=== PATIENT | male | born 1990 | race Caucasian/White ===

== ENCOUNTER 2020-03-24 12:54 | Outpatient (REF) | payer MEDICAID, SELFPAY | END 2020-03-24 12:55 | disposition home or self-care (01) | LOC: HO.LAB 12:54 | PROVIDERS: Visit Provider Internal Medicine | DX: Z20.828 Contact with and (suspected) exposure to other viral communicable diseases (principal) | CPT/HCPCS: C9803; U0003 ==

== ENCOUNTER 2021-04-21 09:10 | Outpatient (REF) | payer MEDICAID, SELFPAY ==
--- NOTE | ~2021-04-21 | XR_ITS ---
EXAMINATION: XR KNEE, RIGHT CLINICAL INFORMATION: Right knee pain with bending radiating proximally within hamstrings. COMPARISON: None TECHNIQUE: Four views of the right knee. FINDINGS: Bones and soft tissues are normal. No fracture or joint effusion. Alignment is anatomic. Joint spaces are well maintained. No abnormal soft tissue calcification. XR/XR knee RT 4V IMPRESSION: Unremarkable examination.
== END 2021-04-21 09:11 | disposition home or self-care (01) ==
LOC: HO.XRAY 09:10
PROVIDERS: PCP Nurse Practitioner; Visit Provider Nurse Practitioner
DX: M25.561 Pain in right knee (principal)
CPT/HCPCS: 73564

== ENCOUNTER 2022-11-29 08:50 | Outpatient (REF) | payer MEDICAID, SELFPAY ==
[2022-11-29 11:39] LABS: MANUAL DIFF FLAG NO
[2022-11-29 11:55] LABS: Basophils Percent Auto 0.6 % (0-2); Eosinophils Absolute Auto 0.1 X10*3/uL (0.0-0.4); Eosinophils Percent Auto 1.9 % (0-4); Hematocrit 48.8 % (42.0-52.0); Hemoglobin 15.6 g/dl (14.0-18.0); Imm Gran Abs Auto 0.02 X10*3/uL (0.00-0.03); Imm Gran Pct Auto 0.3 % (0.0-0.4); Lymphocytes Absolute Auto 1.9 X10*3/uL (1.2-4.9); Lymphocytes Percent Auto 29.4 % (20-40); Mean Corpuscular Hemoglobin 28.1 pg (27.0-33.0); Mean Corpuscular Volume 87.8 fL (80.0-98.0); Mean Platelet Volume 11.4 fL (9.4-12.4); Monocytes Absolute Auto 0.6 X10*3/uL (0.1-1.2); Neutrophils Absolute Auto 3.6 x10*3/uL (2.0-8.3); Neutrophils Percent Auto 57.8 % (45-73); Platelet Count 270 X10*3/uL (160-400); Red Blood Count 5.56 X10*6/uL (4.60-5.80); Red Cell Distribution Width 13.4 % (11.0-16.0); White Blood Count 6.3 X10*3/uL (4.8-10.8)
[2022-11-29 12:18] LABS: Alanine Aminotransferase 29 U/L (0-40); Albumin Level 4.3 g/dL (3.5-5.0); Alkaline Phosphatase 67 U/L (39-117); Anion Gap 18 (12-20); Aspartate Amino Transferase 23 U/L (5-37); Bilirubin Total 1.3 mg/dL (0.0-1.0); Blood Urea Nitrogen 12 mg/dL (9-16); Calcium 9.4 mg/dL (8.4-10.2); Carbon Dioxide 25 mmol/L (22-29); Chloride 106 mmol/L (96-108); Cholesterol 133 mg/dL; Estimated Glomerular Filt Rate > 60; Glucose Random 93 mg/dL (60-115); HDL Cholesterol 39 mg/dL; LDL Cholesterol Calculated 74 mg/dl; Potassium 4.6 mmol/L (3.3-5.1); Sodium 144 mmol/L (135-145); Total Protein 7.5 g/dL (6.5-8.0); Triglycerides 101 mg/dL
[2022-11-29 12:39] LABS: TSH reflex Free T4 0.85 uIU/mL (0.32-4.0)
[2022-11-29 14:01] LABS: CT PCR NOT DETECTED (Not Detect.); NG PCR NOT DETECTED (Not Detect.)
[2022-11-29 16:17] LABS: Estimated Average Glucose 91 mg/dL; Hemoglobin A1c % 4.8 %
[2022-11-30 04:37] LABS: ~Hepatitis C Antibody Nonreactive (Nonreactive)
[2022-11-30 04:44] LABS: HBS Num1 > 1000.00 mIU/mL (0-7.99); HBsAGNum1 0.39 S/CO (0.00-0.99); HIV AB/AG Nonreactive (Nonreactive); HIV Num 1 0.05 S/CO (0.00-0.99); Hepatitis B Core Antibody Nonreactive (Nonreactive); Hepatitis B Surface Antigen Negative (Negative); ~Hepatitis B Surface Antibody REACTIVE (Nonreactive)
[2022-12-01 04:18] LABS: Syphilis Screen Nonreactive (Nonreactive)
== END 2022-11-29 08:51 | disposition home or self-care (01) ==
LOC: HO.HHCL 08:50
PROVIDERS: Visit Provider Student in an Organized Health Care Education/Training Program
DX: Z00.00 Encounter for general adult medical examination without abnormal findings (principal); Z20.2 Contact with and (suspected) exposure to infections with a predominantly sexual mode of transmission
CPT/HCPCS: 0353U; 80053; 80061; 83036; 84443; 85025; 86704; 86706; 86780; 86803; 87340; 87389

== ENCOUNTER 2022-11-29 14:10 | Outpatient (REF) | payer MEDICAID, SELFPAY ==
--- NOTE | ~2022-11-29 | US_ITS ---
EXAMINATION: US RETROPERITONEAL LIMITED (RENAL ONLY) CLINICAL INFORMATION: Left hydronephrosis and nephrolithiasis. COMPARISON: CT abdomen and pelvis without contrast 04/30/2018. TECHNIQUE: Real-time imaging of the kidneys. FINDINGS: RIGHT KIDNEY: 11.6 x 6.8 x 4.6 cm (SAG x AP x TRV). The kidney is normal in size, contour, and echogenicity. Renal cortical thickness is normal. No calculi or focal parenchymal lesions. No hydronephrosis. LEFT KIDNEY: 11.7 x 5.4 x 4.4 cm (SAG x AP x TRV). The kidney is normal in size, contour, and echogenicity. Renal cortical thickness is normal. No focal parenchymal lesions or hydronephrosis. Nonobstructing stones measuring 4 mm in the upper pole new from prior and 4 mm in the mid pole, previously 3 mm. US/US renal BI IMPRESSION: Nonobstructing left renal stones measuring 4 mm in the upper pole new from prior and 4 mm in the mid pole, previously 3 mm. No hydronephrosis.
== END 2022-11-29 14:11 | disposition home or self-care (01) ==
LOC: HO.US 14:10
PROVIDERS: PCP Student in an Organized Health Care Education/Training Program; Visit Provider Student in an Organized Health Care Education/Training Program
DX: N13.30 Unspecified hydronephrosis (principal)
CPT/HCPCS: 76775

== ENCOUNTER 2023-02-11 14:50 | Outpatient (AMB) | payer MEDICAID, SELFPAY ==
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
== END 2023-02-11 15:36 | disposition home or self-care (01) ==
PROVIDERS: PCP Student in an Organized Health Care Education/Training Program; Visit Provider Urology
DX: N20.0 Calculus of kidney (principal)
CPT/HCPCS: 99203

== ENCOUNTER → 2023-02-11 14:50 | Outpatient (BNVA) | payer MEDICAID, SELFPAY | PROVIDERS: PCP Student in an Organized Health Care Education/Training Program; Visit Provider Urology ==

== ENCOUNTER 2023-03-31 15:00 | Outpatient (REF) | payer MEDICAID, SELFPAY ==
--- NOTE | 2023-03-31 15:03 | EMG_ITS ---
Chief complaint: At least 2 years of right hand pain and numbness Reason for referral: Evaluate for Carpal Tunnel Syndrome Referred by: Dr. Nunes Procedure done: Right upper extremity NCS/EMG Precautions and/or limitations: None The limb temperature was monitored continuously and remained between 32-36 degrees C during the performance of the NCS. Nerve Conduction Studies Anti Sensory Summary Table ?Stim Site NR Onset (ms) Norm Onset (ms) Peak (ms) Norm Peak (ms) O-P Amp (?V) Norm O-P Amp Site1 Site2 Delta-0 (ms) Dist (cm) Dalton (m/s) Norm Dalton (m/s) Right Median Anti Sensory (2nd Digit) Wrist ? 3.6 4.5 <3.6 33.9 >10 Wrist 2nd Digit 3.6 14.0 39 Right Radial Anti Sensory (Thumb) Forearm ? 1.2 1.8 <3.1 17.7 Forearm Thumb 1.2 0.0 Right Ulnar Anti Sensory (5th Digit) Wrist ? 2.9 3.6 <3.7 17.4 >15.0 Wrist 5th Digit 2.9 14.0 48 Motor Summary Table ?Stim Site NR Onset (ms) Norm Onset (ms) O-P Amp (mV) Norm O-P Amp iAmp (mV) Amp (1st) (%) Site1 Site2 Delta-0 (ms) Dist (cm) Dalton (m/s) Norm Dalton (m/s) Right Median Motor (Abd Poll Brev) Wrist ? 5.1 <3.9 13.6 >4.5 17.2 100.0 Elbow Wrist 4.5 23.0 51 >45 Elbow ? 9.6 12.2 15.3 89.7 Right Ulnar Motor (Abd Dig Minimi) Wrist ? 2.7 <3.0 15.2 >5 17.0 100.0 B Elbow Wrist 4.9 22.0 45 >45 B Elbow ? 7.6 14.6 16.3 96.1 A Elbow B Elbow 1.3 10.0 77 >45 A Elbow ? 8.9 14.3 16.1 94.1 EMG ?Side Muscle Nerve Root Ins Act Fibs Psw Amp Dur Poly Recrt Int Pat Comment Right 1stDorInt Ulnar C8-T1 Nml Nml Nml Nml Nml 0 Nml Complete Right FlexCarRad Median C6-7 Nml Nml Nml Nml Nml 0 Nml Complete Right Biceps Musculocut C5-6 Nml Nml Nml Nml Nml 0 Nml Complete Right Triceps Radial C6-7-8 Nml Nml Nml Nml Nml 0 Nml Complete Right Deltoid Axillary C5-6 Nml Nml Nml Nml Nml 0 Nml Complete FINDINGS: Right median motor nerve showed prolonged distal latency, normal amplitude and normal conduction velocity. Right median sensory nerve showed prolonged peak latency. All other nerves tested were within normal. Concentric needle EMG was performed in selected muscles of the right upper extremity. Study did not reveal signs of electric abnormalities as shown in the table below. IMPRESSION: 1. This is an abnormal study. 2. There is electrodiagnostic evidence for right moderate-severe median neuropathy at the wrist, consistent with carpal tunnel syndrome. 3. There is no electrodiagnostic evidence for ulnar neuropathy, brachial plexopathy, or cervical radiculopathy. Thank you for your kind referral. Shania Camacho MD, SHARRON Board Certified, [place] [employer] and [employer] (ABPMR) Board Certified, [place] Board [employer] Electro[employer]ostic [employer] (ABEM) CODIN [id number] Shania Camacho MD, SHARRON Physical Medicine and Rehabilitation [facility]
== END 2023-03-31 15:01 | disposition home or self-care (01) ==
LOC: HO.NEURO 15:00
PROVIDERS: PCP Student in an Organized Health Care Education/Training Program; Visit Provider Student in an Organized Health Care Education/Training Program
DX: R20.0 Anesthesia of skin (principal)
CPT/HCPCS: 95886; 95909

== ENCOUNTER → 2023-03-31 15:03 | Outpatient (BNV) | payer MEDICAID, SELFPAY | PROVIDERS: PCP Student in an Organized Health Care Education/Training Program; Visit Provider Physical Medicine & Rehabilitation | DX: G56.11 Other lesions of median nerve, right upper limb (principal); G56.01 Carpal tunnel syndrome, right upper limb | CPT/HCPCS: 95886; 95909 ==

== ENCOUNTER 2023-05-05 07:57 | Outpatient (REF) | payer MEDICAID, SELFPAY | END 2023-05-05 07:58 | disposition home or self-care (01) | LOC: HO.US 07:57 | PROVIDERS: PCP Student in an Organized Health Care Education/Training Program; Visit Provider Urology | DX: N20.0 Calculus of kidney (principal) | CPT/HCPCS: 76775 ==

== ENCOUNTER 2023-05-16 15:12 | Outpatient (AMB) | payer MEDICAID, SELFPAY ==
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
== END 2023-05-16 15:37 | disposition home or self-care (01) ==
LOC: HO.HUSH 15:12
PROVIDERS: PCP Student in an Organized Health Care Education/Training Program; Visit Provider Urology
DX: N20.0 Calculus of kidney (principal)
CPT/HCPCS: 99214

== ENCOUNTER → 2023-05-16 15:12 | Outpatient (BNVA) | payer MEDICAID, SELFPAY | PROVIDERS: PCP Student in an Organized Health Care Education/Training Program; Visit Provider Urology ==

== ENCOUNTER 2024-02-09 14:14 | Outpatient (REF) | payer MEDICAID, SELFPAY ==
--- NOTE | ~2024-02-09 | XR_ITS ---
EXAMINATION: XR LUMBOSACRAL SPINE CLINICAL INFORMATION: Lytic right-sided low back pain COMPARISON: None available. TECHNIQUE: Five views of the lumbosacral spine. FINDINGS: No evidence for acute lumbar compression fracture. Anterolisthesis noted L5-S1. Possible spondylolysis at L5. Slight eccentric disc space narrowing at L5-S1. XR/XR lumbar spine 4V min IMPRESSION: No compression fracture. Slight eccentric disc space narrowing L5-S1. Anterolisthesis L5-S1. Possible spondylolysis at L5. CT evaluation may be helpful toward further clarification. Electronically signed by: Coleman Bradford MD 02/09/2024 04:50 PM EDT
== END 2024-02-09 14:15 | disposition home or self-care (01) ==
LOC: HO.HHCX 14:14
PROVIDERS: Visit Provider Nurse Practitioner Primary Care
DX: M54.41 Lumbago with sciatica, right side (principal); G89.29 Other chronic pain
CPT/HCPCS: 72110

== ENCOUNTER 2024-03-05 08:32 | Outpatient (REF) | payer MEDICAID, SELFPAY | END 2024-03-05 08:33 | disposition home or self-care (01) | LOC: HO.US 08:32 | PROVIDERS: PCP Student in an Organized Health Care Education/Training Program; Visit Provider Urology | DX: N20.0 Calculus of kidney (principal) | CPT/HCPCS: 76775 ==

== ENCOUNTER 2024-03-08 07:33 | Outpatient (REF) | payer MEDICAID, SELFPAY ==
--- NOTE | ~2024-03-08 | CT_ITS ---
EXAMINATION: CT LUMBAR SPINE WITHOUT CONTRAST CLINICAL INFORMATION: Acute on chronic low back pain, L5 stress fracture on x-ray COMPARISON: Lumbar spine x-ray on 02/09/2024 TECHNIQUE: Multiple 2.0 and 1.5 mm axial images of the lumbar spine were obtained from lower T12 to S1 levels without IV contrast enhancement. Bone window and soft tissue window images were reconstructed. Coronal and Sagittal bone window images were also reconstructed from the axial image data. This CT examination was performed using dose optimization techniques as appropriate, variously including the following: *Automated exposure control *Adjustment of mA and/or kV according to patient size (this includes techniques or standardized protocols for targeted exams where dose is matched to indication/reason for exam; i.e. extremities or head) *Use of iterative reconstruction technique DLP; 511 mGy-cm FINDINGS: The visualized lumbar vertebrae are intact with normal alignment. T12/L1: Bony structures are intact with normal alignment. Intervertebral disc height is normal. Bilateral neuroforamina are patent. Bilateral apophyseal joints are intact with normal alignment. L-1/L-2: Bony structures are intact with normal alignment. Intervertebral disc height is normal. Bilateral neuroforamina are patent. Bilateral apophyseal joints are intact with normal alignment. L2/L3: Bony structures are intact with normal alignment. Intervertebral disc height is normal. Bilateral neuroforamina are patent. Bilateral apophyseal joints are intact with normal alignment. L3/L4: Bony structures are intact with normal alignment. Intervertebral disc height is normal. Bilateral neuroforamina are patent. Bilateral apophyseal joints are intact with normal alignment. L4/L5: Bony structures are intact with normal alignment. Intervertebral disc height is normal. Bilateral neuroforamina are patent. Bilateral apophyseal joints are intact with normal alignment. L5/S1: Bony structures are intact with anterior L5 on S1 displacement by 0.35 cm, with exposure of intervertebral disc. Bilateral L5 pars interarticularis bony defects with sclerotic border are present. Intervertebral disc height is normal. Mild posterior disc protrusion is present. Bilateral neuroforamina are patent. Bilateral apophyseal joints are intact with normal alignment. Tiny mid and inferior posterior left renal calculi up to 0.3 cm in size are seen without causing caliectasis. CT/CT lumbar spine wo IV con IMPRESSION: 1. Grade 1 anterolisthesis at L5-S1 with bilateral L5 spondylolysis are seen. 2. Mild posterior disc protrusion at L5-S1. 3. No evidence of spinal canal or neural foraminal stenosis. 4. Left mid and lower nonobstructive renal calculi are present. Electronically signed by: Aileen Henning MD 03/08/2024 10:24 AM [facility]
== END 2024-03-08 07:34 | disposition home or self-care (01) ==
LOC: HO.CT 07:33
PROVIDERS: PCP Student in an Organized Health Care Education/Training Program; Visit Provider Nurse Practitioner Primary Care
DX: M54.41 Lumbago with sciatica, right side (principal); G89.29 Other chronic pain
CPT/HCPCS: 72131

== ENCOUNTER 2024-04-05 10:56 | Outpatient (REF) | payer MEDICAID, SELFPAY ==
[2024-04-05 13:09] LABS: Estimated Average Glucose 105 mg/dL; Hematocrit 47.6 % (42.0-52.0); Hemoglobin 15.7 g/dl (14.0-18.0); Hemoglobin A1C 131.5613 umol/L; Hemoglobin A1c % 5.3 % (<6.0); Mean Corpuscular Hemoglobin 28.2 pg (27.0-33.0); Mean Corpuscular Volume 85.6 fL (80.0-98.0); Mean Platelet Volume 11.6 fL (9.4-12.4); Platelet Count 257 X10*3/uL (160-400); Red Blood Count 5.56 X10*6/uL (4.60-5.80); Red Cell Distribution Width 13.1 % (11.0-16.0); Total Hemoglobin (HGBA1C) 3845.8771 umol/L; White Blood Count 7.8 X10*3/uL (4.8-10.8)
[2024-04-05 13:20] LABS: Alanine Aminotransferase 43 U/L (0-40); Albumin Level 4.2 g/dL (3.5-5.0); Alkaline Phosphatase 61 U/L (39-117); Anion Gap 9 (12-20); Aspartate Amino Transferase 27 U/L (5-37); Bilirubin Total 0.8 mg/dL (0.0-1.0); Blood Urea Nitrogen 12 mg/dL (9-16); Calcium 9.1 mg/dL (8.4-10.2); Carbon Dioxide 29 mmol/L (22-29); Chloride 108 mmol/L (96-108); Estimated Glomerular Filt Rate > 60; Glucose Random 93 mg/dL (60-115); Potassium 4.1 mmol/L (3.3-5.1); Sodium 142 mmol/L (135-145); Total Protein 7.4 g/dL (6.5-8.0)
[2024-04-05 13:35] LABS: TSH reflex Free T4 1.43 uIU/mL (0.32-4.0)
[2024-04-05 15:01] LABS: CT PCR NOT DETECTED (Not Detect.); NG PCR NOT DETECTED (Not Detect.)
[2024-04-06 03:21] LABS: Syphilis Screen Nonreactive (Nonreactive)
[2024-04-06 03:41] LABS: HBS Num1 > 1000.00 mIU/mL (0-7.99); HBc Num1 0.05 S/CO (0.00-0.79); HBsAGNum1 0.55 S/CO (0.00-0.99); HIV AB/AG Nonreactive (Nonreactive); HIV Num 1 0.06 S/CO (0.00-0.99); Hepatitis B Core Antibody Nonreactive (Nonreactive); Hepatitis B Surface Antigen Negative (Negative); ~HepC Num1 0.11 S/CO (0.00-0.79); ~Hepatitis B Surface Antibody REACTIVE (Nonreactive); ~Hepatitis C Antibody Nonreactive (Nonreactive)
== END 2024-04-05 10:57 | disposition home or self-care (01) ==
LOC: HO.HHCL 10:56
PROVIDERS: Visit Provider Student in an Organized Health Care Education/Training Program
DX: Z00.00 Encounter for general adult medical examination without abnormal findings (principal)
CPT/HCPCS: 80053; 83036; 84443; 85027; 86704; 86706; 86780; 86803; 87340; 87389; 87491; 87591

== ENCOUNTER 2024-05-17 15:07 | Outpatient (AMB) | payer MEDICAID, SELFPAY ==
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
== END 2024-05-17 15:42 | disposition home or self-care (01) ==
PROVIDERS: PCP Student in an Organized Health Care Education/Training Program; Visit Provider Urology
DX: Z13.9 Encounter for screening, unspecified (principal); N20.0 Calculus of kidney
CPT/HCPCS: 99213

== ENCOUNTER → 2024-05-17 15:07 | Outpatient (BNVA) | payer MEDICAID, SELFPAY | PROVIDERS: PCP Student in an Organized Health Care Education/Training Program; Visit Provider Urology | DX: N20.0 Calculus of kidney (principal) | CPT/HCPCS: 81003; 99212 ==

== ENCOUNTER 2024-06-19 08:49 | Emergency (ER) | payer MEDICAID, SELFPAY ==
[2024-06-19 08:50] VITALS: BP 119/78; PULSE 77; RESP 20; TEMP 36.6; O2SAT 99; BMI 25.7
--- NOTE | 2024-06-19 10:08 | PC.NURSE ---
Pt comes to ED today with c/o a wide spread rash/pustules from head to toe starting Tuesday with pain and itch. Pt reports noted fevers at home (afebrile now) with night sweats. A&Ox3, VSS Rash/pustules are noted to Pts face, neck, chest area--limited eval at this time as Pt is located in 8H. Skin is warm and dry Breaths and speech are unlabored NAD noted at this time. Awaiting ED provider.
--- NOTE | 2024-06-19 10:46 | ED.GENADULT ---
HPI - General Adult General Chief complaint: General Medical Stated complaint: Fever, rash Time Seen by Provider: 06/19/24 10:46 Source: patient Mode of arrival: ambulatory Limitations: no limitations History of Present Illness ED Provider: Elizabet Gustafson PA-C HPI narrative: 33 yo male with history of kidney stones presents to the ER for evaluation of a diffuse red, raised rash on his face, head, arms, and trunk for the last 3 days along with low grade fevers of 100.4 to 100.6. He states his rash is worse at night and very itchy. He has not taken any medications for it. He denies any new lotions, soaps or detergents. No new medications. He states he has had a temp the last 2 nights and sweating. No cough, runny nose, headache, abdominal pain, N/V/D, joint pain or aches. complaint: rash and fever Onset (ago): day(s) Location: head, face, chest, back, left, right and upper extremity Severity: moderate Quality: other (itchy) Pain Consistency: constant Relieving factors: none Exacerbating factors: none Associated symptoms: fever/chills Treatments prior to arrival: none Related Data Previous Rx's ?Medication ?Instructions ?Recorded diphenhydramine HCl 50 mg tablet 50 mg PO TID PRN itching #10 tabs 06/19/24 (Benadryl Allergy) prednisone 20 mg tablet 40 mg (2 x 20 mg) PO DAILY #10 tabs 06/19/24 Allergies Allergy/AdvReac Type Severity Reaction Status Date / Time No Known Allergies Allergy Verified 06/19/24 08:54 [No Known Allergies*] Review of Systems Review of Systems: Yes all other systems are reviewed and are negative [facility] Past Medical History Surgical History Hx of hydrocele Family History Family History Father No problems noted. Mother Diabetes Social History Social History Alcohol intake: current Alcohol intake frequency: holidays/special occasions only Patient Tobacco Use Status: Never used Tobacco Smoked in Last 30 Days: No Use of substances other than those prescribed or required for medical reasons: No Advance Directives: No Advance Directives Information Provided: No Do you have a plan to hurt others: No Plan Physical Exam ED Vital Signs: Vital Signs - 24 hr 06/19/24 08:50 06/19/24 12:57 Temperature 97.9 F 97.9 F Pulse Rate 77 77 Respiratory Rate 20 20 Blood Pressure 119/78 119/78 Pulse Oximetry 99 99 Oxygen Delivery Method Room Air Room Air BMI result Body Mass Index 25.7 Appearance: Alert. Oriented X3. No acute distress. Head: normocephalic, atraumatic. Eyes: Pupils equal, round and reactive to light. ENT: Pharynx normal. No tonsillar swelling or exudate. no lesions in the mouth Neck: Normal inspection. Neck supple. CVS: Normal heart rate and rhythm. Pulses normal. Respiratory: No respiratory distress. Breath sounds normal. Abdomen: Soft and nontender. +BS x4 Skin: Skin warm and dry. Normal skin color. Normal skin turgor. scattered red, raised rash on the bilateral forearms, trunk and face. no blisters Extremities: No lower extremity edema. No joint swelling. Neuro/psych: Oriented X 3. No motor deficit. No sensory deficit. CN II-XII intact. Normal speech and cognition. Medications Administered Discontinued Medications Generic Name Dose Route Start Last Admin Trade Name Freq PRN Reason Stop Dose Admin Diphenhydramine HCl 50 mg 06/19/24 10:50 06/19/24 11:38 Diphenhydramine Hcl 25 Mg Capsule PO 06/19/24 10:51 50 mg ONCE ONE Administration Prednisone 50 mg 06/19/24 10:50 06/19/24 11:38 Prednisone 10 Mg Tablet PO 06/19/24 10:51 50 mg ONCE ONE Administration Medical Decision Making Medical Decision Making MDM Narrative: 33 yo male presenting for evaluation of 3 days of an itchy red rash along with low grade fevers. no other symptoms. VSS. exam with a red, raised scattered rash on the arms and trunk. does not appear to be urticarial or blistering, does not involve mucosal surfaces improved w/ prednisone and benadryl viral swab negative stable for d/c home with prednisone and benadryl Differential Diagnosis Differential Diagnoses: The differential diagnosis associated with the presentation includes viral exanthum, contact dermatitis, allergic dermatitis, scabies, bed bugs Lab Data [facility] Lab Attestation statement: I reviewed the patient's lab results. Labs: Lab Results 06/19/24 Range/Units 11:06 Influenza Type A (PCR) NEGATIVE (Negative) Influenza Type B (PCR) NEGATIVE (Negative) RSV RNA Qual (PCR) NEGATIVE (Negative) SARS-CoV-2 RNA (RT-PCR) NEGATIVE (Negative) External Record Review External record reviewed: Prior outpatient labs Prescription Management I considered prescription management with: Pain Medication, Antiviral and Antibiotic Critical Care Time Critical Care Time Critical Care Time: No Discharge Plan Discharge Clinical Impression: Acute dermatitis Patient Disposition: Home, Self-Care Instructions: Dermatitis (ED) Additional Instructions: you tested negative for covid, flu and rsv take the prescribed prednisone as directed - start it tomorrow morning and complete the entire course take the prescribed bendryl as needed for itching take tylenol as needed for fever rest and drink plenty of fluids follow up with your doctor If you develop new or worsening symptoms call 911 or come back to the ER for further evaluation. Prescriptions: New prednisone 20 mg tablet 40 mg PO DAILY Qty: 10 0RF Benadryl Allergy 50 mg tablet 50 mg PO TID PRN (Reason: itching) Qty: 10 0RF Stand Alone Forms: Work/School Release Interventions: ED Discharge Assessment Last Done: 06/19/24 12:57 Discharge Date/Time: 06/19/24 12:57 Print Language: Danish
--- OUTSIDE RECORDS SUMMARY | 2024-06-19 10:49 | XMS_ITS | Encounter Summary ---
Author Organization [facility] Address [address] [place] [address] Care Team Providers Care Research Director Name Role Phone Joy Varela Primary Care Provider [phone] Jemima Bates MD Primary Care Pro vider Encounter Details Date Type Department Care Team (Latest Contact Info) Description 02/12/2019 Abstract [facility] CONVERSIONS Dental, Provider, DDS Social History Tobacco Use Types Packs/Day Years Used Date Smoking Tobacco: Never Assessed Sex and Gender Information Value Date Recorded Sex Assigned at Male 03/01/2022 10:32 AM EDT Legal Sex Male 10:32 AM EDT Gender Identity Male 03/01/2022 10:32 AM EDT Sexual Orientation Straight 03/01/2022 10 :32 AM EDT documented as of this encounter Plan of Treatment Not on file documented as of this encounter Visit Diagnoses Not on filedocumented in this encounter Care Teams Research Director Relationship Specialty Start Date End Date Joy Vareal FNP [address] [place] [address] PCP - General Family Medicine 12/23/21 09/30/22 Jemima Bates MD [address] [place] [address] PCP - General Internal Medicine 10/01/22 documented as of this encounter
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
--- OUTSIDE RECORDS SUMMARY | 2024-06-19 10:49 | XMS_ITS | Encounter Summary ---
Author Organization [employer] Address [address] [place] [address] Care Team Providers Care Ship Loader Name Role Phone Jemima Bates MD Primary Care Pro vider Reason for Visit * Reason Comments Med Refill Encounter Details Date Type Department Care Team ([facility] st Contact Info) Description 05/21/2024 Refill [facility] [address] [place], [place] [phone] Jemima Bates MD [address] [place] [address] Social History Tobacco Use Types Packs/Day Years [...] is your housing situation today? I have casey leonardo 02/09/[address] you [...] documented as of this encounter Care Teams Ship Loader Relationship Specialty Start Date End Date Jemima Bates MD [address] [place] [id number] PCP - General Internal Medicine 10/01/22 documented as of this encounter
--- OUTSIDE RECORDS SUMMARY | 2024-06-19 10:49 | XMS_ITS | Encounter Summary ---
Author Organization [facility] Address [address] [place] [address] Care Team Providers Care Director Enterprise Data Architecture Name Role Phone Joy Varela Primary Care Provider [phone] Jemima Bates MD Primary Care Pro vider Encounter Details Date Type Department Care Team (Latest Contact Info) Description 11/30/2021 Abstract [facility] CONVERSIONS Dental, Provider, DDS Social History Tobacco [...] on filedocumented in this encounter Care Teams Director Enterprise Data Architecture Relationship Specialty Start Date End Date Joy Varela FNP [address] [place] [address] PCP - General Family Medicine 12/23/21 09/30/22 Jemima Bates MD [address] [place] [address] PCP - General Internal Medicine 10/01/22 documented as of this encounter
--- OUTSIDE RECORDS SUMMARY | 2024-06-19 10:49 | XMS_ITS | Encounter Summary ---
Author Organization [employer] Address [address] [place] [address] 7 [place] [address] Care Team Providers Care Clinical Biochemist Name Role Phone Jemima Bates MD Primary Care Pro vider Reason for Visit * Reason Comments Dental Exam Lower right side tess ling broke - discomfort due to lot of pressure Encounter Details Date Type Department Care Team (Late st Contact Info) Description 05/24/2024 11:00 AM EST Office Visit [facility] [address] [place] [address] Sam Ferreiraanpreet [address] [place] [address] Social History Tobacco Use Types Packs/Day Years [...] encounter Progress Notes * Megan Ferreira - 05/24/2024 11:00 AM EST Images from the original note were not included. Dental procedures in this visit D0140 - LIMITED ORAL EVALUATION - PROBLEM FOCUSED 29 (Completed) Service provider: Megan Ferreira Billing provider: Megan Ferreira [id number] - BITEWING - SINGLE RADIOGRAPHIC IMAGE (Completed) Service provider: Megan Ferreira Billing provider: Megan Ferreira D0220 - INTRAORAL - PERIAPICAL FIRST RADIOGRAPHIC IMAGE (Completed) Service provider: Megan Ferreira Billing provider: Megan Ferreira [id number] - ADJUNCTIVE GENERAL SERVICES - PROFESSIONAL VISITS - CASE PRESENTATION, SUBSEQUENT TO DETAILED AND EXTENSIVE TREATMENT PLANNING (Completed) Service provider: Megan Ferreira Billing provider: Megan Ferreira Patient ID: Ryne Blackburn is a 33 y.o. male. Time Out: Timeout Date: 05/24/24, Timeout Time: 1126 Location: [facility] Tooth: #29 Procedure: Exam and X-rays Verified the above with patient, event sales assistant, and provider. Confirmed via patient's chart, intraorally and by radiographs. Microcomputer Technician: Yes. Language: [place]. Microcomputer Technician's Name: Renetta Chief Complaint Patient presents with Dental Exam Lower right side filling broke - discomfort due to lot of pressure Medical Hx: Vitals: There were no vitals taken for this visit. History reviewed. No pertinent past medical history. Medications: Outpatient Encounter Medications as of 05/24/2024 Medication Sig Dispense Refill naproxen (Naprosyn) 500 MG tablet TAKE 1 TAB BY ORALLY WITH BREAKFAST AND WITH EVENING MEAL FOR 7-10 DAYS THEN TAKE NEEDED 30 tablet 0 omeprazole (PriLOSEC) [address] capsule TAKE 1 CAPSULE BY MOUTH BEFORE BREAKFAST 90 capsule 0 [DISCONTINUED] omeprazole (PriLOSEC) [address] capsule TAKE 1 CAPSULE BY MOUTH BEFORE BREAKFAST 90 capsule 0 No facility-administered encounter medications on file as of 05/24/2024. Chief complaint: My filling broke and that is causing a lot of pressure while biting and eating . Discussion: -Pt stated that he has no pain but only feels pressure while biting and eating only. -Upon exam, #29 existing sikh was fractured distally as evident. Pt made aware. -Percussion -ve, palpation -ve, endo ice test-normal response. -No redness/swelling evident clinically. -Pt was recommended to get #29 DO composite sikh. -Pt was also advised to get comprehensive exam after restorative work of tooth in question. -OHI reviewed. -Pt understood, was satisfied with our conversation and agreed with tx plan. -Patient was discharged alert, oriented, and in stable condition. -All questions answered. OCS- negative Head and neck exam: Lymph Nodes, Lips, Palate, Buccal Mucosa, Floor of Mouth, Tongue, Tonsils, Alveolar Ridges, Oropharynx, Salivary Ducts, Vestibules - no abnormal findings. TMJ/Occlusal - TMJ is within normal limits. Oral Cancer Risk - low Oral Hygiene- fair Oral Hygiene Instruction Provided - Yes Oral Hygiene Instructions: [place] two times daily, modified kelly technique, Floss daily, Electric toothbrush, Soft bristle toothbrush, [place] Tongue. Referrals - None All questions answered and expressed understanding. Dismissed in good condition. [place]: restorative Remodeler: Renetta Gomes Dentist: Dr. Megan Ferreira, DMD documented in this encounter Plan of Treatment Scheduled Orders Name Type Priority Associated Diagnoses Orde r Schedule COMPREHENSIVE ORAL EVALUATION - NEW OR ESTABLISHED PATIENT Dental Routine 1 Occurrence s starting 05/24/2024 documented as of this encounter Procedures Procedure Name Priority Date/Time Associated Diagnosis Comments 29 LIMITED ORAL EVALUATION - PROBLEM FOCUSED Routine 05/24/2024 11:00 AM EST INTRAORAL - PERIAPICAL FIRST RADIOGRAPHIC IMAGE Routine 05/24/2024 11:00 AM EST CASE PRESENTATION, DETAILED AND EXTENSIVE TREATMENT PLANNING Routine 05/24/2024 11:00 AM EST BITEWING - SINGLE RADIOGRAPHIC IMAGE Routine 05/24/2024 11:00 AM EST documented in this encounter Visit Diagnoses Not on filedocumented in this encounter Additional Health Concerns Assessment Noted Time PHQ-9 Depression Total Score: 2 02/09/20 24 2:00 PM EDT documented as of this encounter Care Teams Clinical Biochemist Relationship Specialty Start Date End Date Jemima Bates MD [address] [place] [id number] PCP - General Internal Medicine 10/01/22 documented as of this encounter
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
--- OUTSIDE RECORDS SUMMARY | 2024-06-19 10:49 | XMS_ITS | Encounter Summary ---
Author Organization [employer] [facility] Address [address] [place] [phone] Care Team Providers Care Rn Radiation Oncology Name Role Phone Joy Varela Primary Care Provider [phone] Jemima Bates MD Primary Care Pro vider Encounter Details Date Type Department Care Team (Latest Contact Info) Description 08/08/2020 Abstract [facility] CONVERSIONS Dental, Provider, DDS Social History Tobacco [...] on filedocumented in this encounter Care Teams Rn Radiation Oncology Relationship Specialty Start Date End Date Joy Varela FNP [address] [place] [address] PCP - General Family Medicine 12/23/21 09/30/22 Jemima Bates MD [address] [place] [address] PCP - General Internal Medicine 10/01/22 documented as of this encounter
--- OUTSIDE RECORDS SUMMARY | 2024-06-19 10:49 | XMS_ITS | Clinical Summary ---
Author Organization [facility] Address [address] [place] [address] Care Team Providers Care Admissions Coordinator Name Role Phone Unavailable Primary Care Provider Unavailabl e Social History Tobacco Use Types Packs/Day Years Used Date Smoking Tobacco: Never Assessed Sex and Gender Information Value Date Recorded Sex Assigned at Not on file Legal Sex Male 11:42 AM EST Gender Identity Not on file Sexual Orientation Not on file Plan of Treatment Health Maintenance Due Date Last Done Comments DTaP,Tdap,and Td Vaccines (1 - Tdap) 2009 Hepatitis B Vaccines (1 of 3 - 19+ 3-dose series) 2009 Depression Screening 03/30/2022 HIV Screening 03/30/2022 Hepatitis C Screening 03/30/2022 Social Influencers of Health Screening 03/30/2022 COVID-19 Vaccine ( - 2023-2 5 season) 2024 Influenza Vaccine (#1) 2024 HIB Vaccines Aged Out No longer eligi [...] on patient's age to complete this topic MMR Vaccines Aged Out No longer eligi ble based on patient's age to complete this topic Meningococcal ACWY Vaccine Aged Out N o longer eligible based on patient's age to complete this topic Meningococcal B Vacine Aged Out No lo nger eligible based on patient's age to complete this topic Pneumococcal Vaccine: Pediat rics (0 to 5 Years) and At-Risk Patients (6 to 64 Years) Aged Out No longer eligible b ased on patient's age to complete this topic RSV Immunization Patients Un hema 20 months Aged Out No longer eligible b ased on patient's age to complete this topic Varicella Vaccines Aged Out No longer eligible based on patient's age to complete this topic
[2024-06-19] MEDS: diphenhydrAMINE HCL 25 MG CAPSULE 50 MG PO (11:38)
[2024-06-19] MEDS: predniSONE 10 MG TABLET 50 MG PO (11:38)
[2024-06-19 11:49] LABS: Influenza A PCR NEGATIVE (Negative); Influenza B PCR NEGATIVE (Negative); Resp Syncy Virus RNA Qual PCR NEGATIVE (Negative); SARS COV2 PCR INHOUSE NEGATIVE (Negative)
[2024-06-19 12:57] VITALS: BP 119/78; PULSE 77; RESP 20; TEMP 36.6; O2SAT 99
== END 2024-06-19 12:57 | disposition home or self-care (01) ==
PROVIDERS: Physician Assistant; Emergency Provider Emergency Medicine Emergency Medical Services; PCP Student in an Organized Health Care Education/Training Program
DX: L30.9 Dermatitis, unspecified (principal); R50.9 Fever, unspecified; Z03.818 Encounter for observation for suspected exposure to other biological agents ruled out
CPT/HCPCS: 0241U; 99283; 99284

== ENCOUNTER 2024-09-06 11:34 | Outpatient (REF) | payer MEDICAID, SELFPAY ==
--- OUTSIDE RECORDS SUMMARY | 2024-09-06 13:05 | XMS_ITS | Clinical Summary ---
Author Organization [facility] Address [address] [place] [address] Care Team Providers Care Cattle Alley Worker Name Role Phone Unavailable Primary Care Provider [...] - 2023-2 5 season) 2024 Influenza Vaccine (Season Ended) 2024 HIB Vaccines Aged Out No longer [...] age to complete this topic Meningococcal B Vaccine Aged Out No l onger eligible based on patient's age to complete [...]
--- OUTSIDE RECORDS SUMMARY | 2024-09-06 13:05 | XMS_ITS | Encounter Summary ---
Author Organization [facility] Address [address] [place] [address] 7 [place] [address] Care Team Providers Care High School Teacher Name Role Phone Joy Varela Primary Care Provider [phone] Jemima Bates MD Primary Care Pro vider Encounter Details Date Type Department Care Team (Latest Contact Info) Description 02/12/2019 Abstract [facility] CONVERSIONS Dental, Provider, DDS Social History Tobacco Use Types Packs/Day Years Used Date Smoking Tobacco: Never Assessed Sex and Gender Information Value Date Recorded Sex Assigned at Male 03/01/2022 10:32 AM EDT Legal Sex Male 10:32 AM EDT Gender Identity Male 03/01/2022 10:32 AM EDT Sexual Orientation Straight 03/01/2022 10 :32 AM EDT documented as of this encounter Plan of Treatment Upcoming Encounters Date Type Department Care Team ( st Contact Info) Description 10/12/2024 9:15 AM EDT Office Visit [facility] MEDICINE [address] [place] [address] Bhaskar Ortiz MD [address] [place] [address] documented as of this encounter Visit Diagnoses Not on filedocumented in this encounter Care Teams High School Teacher Relationship Specialty Start Date End Date Joy Varela FNP [address] [place] [address] PCP - General Family Medicine 12/23/21 09/30/22 Jemima Bates MD [address] [place] [phone] PCP - General Internal Medicine 10/01/22 documented as of this encounter
--- OUTSIDE RECORDS SUMMARY | 2024-09-06 13:05 | XMS_ITS | Encounter Summary ---
Author Organization [employer] Address [address] [place] [address] 7 [place] [address] Care Team Providers Care Museum Service Scheduler Name Role Phone Jemima Bates MD Primary Care Pro vider Encounter Details Date Type Department Care Team ([facility] st Contact Info) Description 09/06/2024 10:30 AM EDT Office Visit [facility] MEDICINE [address] [place], [place] [phone] Jemima Bates MD [address] [place] [address] Dietary counseling; Exercise counseling Social History Tobacco Use Types Packs/Day Years [...] housing situation today? I have caseylucy leonardo 08/23/[address] you li ve. Do you have problems with any of the following? None of the above 08/23/2024 Food Insecurity Answer Date Recorded Within the past 12 months, y ou worried that your food would run out before you got money to buy more: Never True 08/23/2024 Within the past 12 months,th e food you bought just didn't last and you didn't have enough money to get more: Never True Transportation Answer Date Recorded In the past 12 months, has l ack of transportation kept you from medical appts, meetings, work or from getting things needed for daily living? No 02/09/2024 Utilities Answer Date Recorded In the past 12 months, has t he electric, gas, oil or water company threatened to shut off services in your home? No 08/23/2024 Depression Answer Date Recorded Patient Health Questionnaire-2 Score 0 04/05/2024 Internet Access Answer Date Recorded Internet Access Q1 Yes 08/23/2024 Internet Access Q2 Not on file 08/23/2024 Sex and Gender Information Value Date Recorded Sex Assigned at Male 03/01/2022 10:32 AM EDT Legal Sex Male 10:32 AM EDT Gender Identity Male 03/01/2022 10:32 AM EDT Sexual Orientation Straight 03/01/2022 10 :32 AM EDT documented as of this encounter Last Filed Vital Signs Vital Sign Reading Time Taken Comments Blood Pressure 110/86 09/06/2024 10:43 AM EDT Pulse 72 09/06/2024 10:43 AM EDT Temperature 36.6 ??C (97.8 ??F) 09/06/2024 10:43 AM E DT Respiratory Rate 20 09/06/2024 10:43 AM EDT Oxygen Saturation 98% 09/06/2024 10:43 AM EDT Inhaled Oxygen Concentration - - Weight 90.3 kg (199 lb) 09/06/2024 10:43 AM EDT Height 182.9 cm (6') 09/06/2024 10:43 AM EDT Body Mass Index 26.99 09/06/2024 10:43 AM EDT documented in this encounter Plan of Treatment Upcoming Encounters Date Type Department Care Team (Late st Contact Info) Description 10/12/2024 9:15 AM EDT Office Visit [facility] MEDICINE [address] [place] [address] Bhaskar Ortiz MD [address] [place] [address] documented as of this encounter Visit Diagnoses Diagnosis Dietary counseling Dietary surveillance and counseling Exercise counseling documented in this encounter Additional Health Concerns Assessment Noted Time PHQ-9 Depression Total Score: 2 02/09/20 24 2:00 PM EDT documented as of this encounter Care Teams Museum Service Scheduler Relationship Specialty Start Date End Date Jemima Bates MD [address] [place] [phone] PCP - General Internal Medicine 10/01/22 documented as of this encounter
--- OUTSIDE RECORDS SUMMARY | 2024-09-06 13:05 | XMS_ITS | Clinical Summary ---
Author Organization [employer] Address [address] [place] [address] 7t [place] [address] Care Team Providers Care Editor & Co Founder Name Role Phone Jemima Bates MD Primary Care Pro vider Allergies No known active allergies Medications * This document contains information received from the source organization and may not represent a complete record from that organization. naproxen (Naprosyn) 500 MG tabletIndicatio ns:Chronic right-sided low back pain with right-sided sciatica TAKE 1 TAB BY ORALLY WITH BREAKFAST AND WITH EVENING MEAL FOR 7-10 DAYS THEN TAKE NEEDED 30 tablet 4 Active omeprazole (PriLOSEC) [address] capsule TAKE 1 CAPSULE BY MOUTH BEFORE BREAKFAST 90 capsule 5 Active Diclofenac Sodium 1 % gel Apply 1 Application topically if needed each day (back pain). 50 g 5 Active Active Problems Problem Noted Date Diagnosed Date [...] acne in back -reports was following w technology applications engineer but lost care-request to f back -referred already Assessment & Plan (11/17/2022 6:12 PM EDT): Pt w hx of severe acne w scarring in face and back -still w active acne in back -reports was following w technology applications engineer but lost care-referred back Health care maintenance [...] Encounters Date Type Department Care Team Description 09/06/2024 10:30 AM EDT Office Visit [facility] MEDICINE [address] [place] [phone] Jemima Bates MD Dietary counseling; Exercise counseling 09/06/2024 Travel 09/05/2024 Telephone [facility] MEDICINE [address] [place] [phone] Jemima Bates MD Chart Prep 08/23/2024 Patient Outreach [facility] [address] [place], [place] [phone] Jemima Bates MD Pre-visit Planning (SDOH negative, Tobacco screening negative) 07/13/2024 Population Health Risk Score [facility] [address] [place] [phone] Provider, Population Health Generic 06/19/2024 Orders Only GENERIC EXTERNAL DATA DEPARTMENT Provider, Generic External Data from Last 3 Months Immunizations Name Administration [...] housing situation today? I have casey leonardo 08/23/[address] you [...] Mass Index 26.99 09/06/2024 10:43 AM EDT Plan of Treatment Upcoming Encounters Date Type Department Care Team (Late st Contact Info) Description 10/12/2024 9:15 AM EDT Office Visit [facility] MED[facility]INE [address] [facility] [place] [address] Bhaskar Ortiz MD [address] [place], [place] [phone] Health Maintenance Due Date Last Done Comments Family Planning (PISQ) 2005 Hepatitis B Vaccines (1 of 3 - 19+ 3-dose series) 2009 Dental Oral Exam 06/03/2022 11/30/2021, 12/2020, 12/29/2018, Additional history exists Dental Prophylaxis 06/03/2022 11/30/2021, 1 , 05/28/2017 Dental X-Ray: Full Mouth 08/10/2023 08/08/2020, 05/03 COVID-19 Vaccine ( season) 2024 02/20/2021, 01/19/2021 Influenza Vaccine (#1) 2024 Depression Screening 04/05/2025 04/05/2024, 02/09/20 Dental X-Ray: Bitewings 05/25/2025 05/24/19 25, 11/30/2021, 08/08/2020, Additional history exists SDOH Screening 08/23/2025 08/23/2024 Alcohol/Substance Use Screening 09/06/2025 09/06/2024 Tobacco Screening 09/06/2025 09/06/2024 DTaP/Tdap/Td Vaccines (2 - Td or Tdap) [...] Procedure Name Priority Date/Time Associated Diagnosis Comments SARS COV2/INFLUENZA A/B AND RSV RNA QL NAAT Routine 06/19/2024 11:06 AM EST BITEWING - SINGLE RADIOGRAPHIC IMAGE Routine 05/24/2024 11:00 AM EST HEPATITIS C AB W/REFL TO HCV RNA, [...] Recently Relevant to Health Maintenance Results * SARS-CoV-2 RNA, Influenza A/B, and RSV RNA, Ql NAAT (06/19/2024 11:06 AM EST) Influenza A PCR NEGATIVE Negative [facility] Influenza B PCR NEGATIVE Negative [facility] Resp Syncy Virus RNA Qual PCR NEGATIVE Negative [facility] SARS COV2 PCR NEGATIVE Negative [facility] Comment:All test results mus t be correlated with clinical findings.Negative results do not preclude SARS-CoV2, influenza Avirus, influenza B virus and/or RSV infectionand should not be used as the sole basis for treatment orother patient management decisions. Negative results must becombined with clinical observations, patient history, andepidemiological information.This test has not been evaluated for monitoring treatment ofinfection.This test has been authorized by the FDA under an EmergencyUse Authorization (EUA) for use by authorized laboratories.Testing performed on the iGo GeneXpert utilizingreal-time RT-PCR.All SARS CoV2 and positive influenza A/B results arereported to [facility]. 06/19/2024 11:0 6 AM EST 06/19/2024 11:10 AM EST us Generic External Data Provider LAB MICROBIOLOGY - GENERAL ORDERABLES Final Result Performing Organization Address [facility] Co de Phone Number [facility] [address] [place] [phone] * Hepatitis C Antibody with Reflex to HCV, RNA, Quantitative, Real-Time PCR (04/05/2024 11:00 AM EST) Hepatitis C Antibody Nonreactive Nonreactive [facility] Comment:Antibodies to HCV no t detected; does not exclude early acuteHCV infection. Blood Venous blood specimen / Unknown 04/05/2024 11:00 AM EST 04/05/2024 12:46 PM EST us Jemima Nunes MD LAB BLOOD ORDERAB LES Final Result Performing Organization Address [facility] Co de Phone Number [facility] [address] [place] [phone] * HIV-1/2 Antigen and Antibodies, Fourth Generation, with Reflexes (04/05/2024 11:00 AM EST) HIV AB/AG Nonreactive Nonreactive [facility] Comment:HIV-1 p24 Ag and/or HIV-1/HIV-2 Ab not detected.A test result that is nonreactive does not exclude thepossibility of exposure to or infection with HIV-1 and/orHIV-2. Nonreactive results in this assay for individualswith prior exposure to HIV-1 and/or HIV-2 may be due toantigen and antibody levels that are below the limit ofdetection of this assay.The [employer] HIV Ag/Ab Combo assay result andsupplemental assay results should be interpreted inconjunction with the patient's clinical presentation,history and other laboratory results. If the results areinconsistent with clinical evidence, additional testing issuggested to confirm the result. Blood Venous blood specimen / Unknown 04/05/2024 11:00 AM EST 04/05/2024 12:46 PM EST us Jemima Nunes MD LAB BLOOD ORDERAB LES Final Result [facility] [address] [place] [phone] from Last 3 Months or Most Recently Relevant to Health Maintenance Insurance [facility] MEDICAID STAND ADULT Care Teams Editor & Co Founder Relationship Specialty Start Date End Date Jemima Bates MD [address] [place] [phone] PCP - General Internal Medicine 10/01/22
--- OUTSIDE RECORDS SUMMARY | 2024-09-06 13:05 | XMS_ITS | Encounter Summary ---
Author Organization [facility] Address [address] [place] [address] 7 [place] [address] Care Team Providers Care Cabin Supervisor Name Role Phone Joy Varela Primary Care Provider [phone] Jemima Bates MD Primary Care Pro vider Encounter Details Date Type Department Care Team (Latest Contact Info) Description 08/08/2020 Abstract [facility] CONVERSIONS Dental, Provider, DDS Social History Tobacco [...] Description 10/12/2024 9:15 AM EDT Office Visit [facility] MEDICINE [address] [place] [address] Bhaskar Ortiz MD [address] [place] [address] documented as of this encounter Visit Diagnoses Not on filedocumented in this encounter Care Teams Cabin Supervisor Relationship Specialty Start Date End Date Joy Varela FNP [address] [place] [address] PCP - General Family Medicine 12/23/21 09/30/22 Jemima Bates MD [address] [place] [phone] PCP - General Internal Medicine 10/01/22 documented as of this encounter
--- OUTSIDE RECORDS SUMMARY | 2024-09-06 13:05 | XMS_ITS | Encounter Summary ---
Author Organization [employer] Address [address] [place] [address] Care Team Providers Care Telephone Sales Agent Name Role Phone Jemima Bates MD Primary Care Pro vider Reason for Visit * Reason Onset Date Comments Chart Prep 09/05/2024 Encounter Details Date Type Department Care Team ([facility] st Contact Info) Description 09/05/2024 Telephone [facility] MEDICINE [address] [place], [place] [phone] Jemima Bates MD [address] [place] [address] Chart Prep Social History Tobacco Use Types Packs/Day Years [...] AM EDT documented as of this encounter Miscellaneous Notes * Telephone Encounter - La Martin [place] - 09/05/2024 2:48 PM EDT Chart Prep Labs: done ; except the CMP ordered 04/06/2025 Images: not applicable Vaccines due: Covid Due, Hep B Due, and Flu Due Referrals: Ophthalmology Pending appointment on ; sent as an fyi to pcp and nurses given that thereferral hasn't been worked on. An internal referral for [facility] has to go under [facility] when looked up to add orders in order for the pt to go into their referral wait list. Screenings: Not Applicable Overdue care gaps: Sbirt and Disability documented in this encounter Plan of Treatment Upcoming Encounters Date Type Department Care Team (Late st Contact Info) Description 10/12/2024 9:15 AM EDT Office Visit [facility] MEDICINE [address] [place], [place] [phone] Bhaskar Ortiz MD [address] [place] [address] documented as of this encounter Visit Diagnoses Not on filedocumented in this encounter Additional Health Concerns Assessment Noted Time PHQ-9 Depression Total Score: 2 02/09/20 24 2:00 PM EDT documented as of this encounter Care Teams Telephone Sales Agent Relationship Specialty Start Date End Date Jemima Bates MD [address] [place] [phone] PCP - General Internal Medicine 10/01/22 documented as of this encounter
--- OUTSIDE RECORDS SUMMARY | 2024-09-06 13:05 | XMS_ITS | Encounter Summary ---
Author Organization [facility] Address [address] [facility] 7t [place] [address] Care Team Providers Care Web Application Developer Name Role Phone Jemima Bates MD Primary Care Pro vider Encounter Details Date Type Department Care Team (Latest Contact Info) Description 09/06/2024 Travel Social History Tobacco Use Types Packs/Day Years [...] Description 10/12/2024 9:15 AM EDT Office Visit [facility] MEDICINE [address] [place] [phone] Bhaskar Ortiz MD [address] [place] [phone] documented as of this encounter Visit Diagnoses Not on filedocumented in this encounter Additional Health Concerns Assessment Noted Time PHQ-9 Depression Total Score: 2 02/09/20 24 2:00 PM EDT documented as of this encounter Care Teams Web Application Developer Relationship Specialty Start Date End Date Jemima Bates MD [address] [place] [phone] PCP - General Internal Medicine 10/01/22 documented as of this encounter
--- OUTSIDE RECORDS SUMMARY | 2024-09-06 13:05 | XMS_ITS | Encounter Summary ---
Author Organization [facility] Address [address] [place] [address] 7 [place] [address] Care Team Providers Care Wicker Molded Candles Name Role Phone Joy Varela Primary Care Provider [phone] Jemima Bates MD Primary Care Pro vider Encounter Details Date Type Department Care Team (Latest Contact Info) Description 11/30/2021 Abstract [facility] CONVERSIONS Dental, Provider, DDS Social History [...] Description 10/12/2024 9:15 AM EDT Office Visit [facility] MEDICINE [address] [place] [address] Bhaskar Ortiz MD [address] [place] [address] documented as of this encounter Visit Diagnoses Not on filedocumented in this encounter Care Teams Wicker Molded Candles Relationship Specialty Start Date End Date Joy Varela FNP [address] [place] [address] PCP - General Family Medicine 12/23/21 09/30/22 Jemima Bates MD [address] [place] [phone] PCP - General Internal Medicine 10/01/22 documented as of this encounter
[2024-09-06 13:40] LABS: Alanine Aminotransferase 42 U/L (0-40); Albumin Level 4.4 g/dL (3.5-5.0); Alkaline Phosphatase 65 U/L (39-117); Anion Gap 13 (12-20); Aspartate Amino Transferase 30 U/L (5-37); Bilirubin Total 0.9 mg/dL (0.0-1.0); Blood Urea Nitrogen 13 mg/dL (9-16); Calcium 9.6 mg/dL (8.4-10.2); Carbon Dioxide 30 mmol/L (22-29); Chloride 105 mmol/L (96-108); Estimated Glomerular Filt Rate > 60; Glucose Random 89 mg/dL (60-115); Potassium 4.5 mmol/L (3.3-5.1); Sodium 143 mmol/L (135-145); Total Protein 7.6 g/dL (6.5-8.0)
== END 2024-09-06 11:35 | disposition home or self-care (01) ==
LOC: HO.HHCL 11:34
PROVIDERS: Visit Provider Student in an Organized Health Care Education/Training Program
DX: R74.01 Elevation of levels of liver transaminase levels (principal)
CPT/HCPCS: 36415; 80053

== ENCOUNTER 2025-04-16 07:48 | Outpatient (REF) | payer MEDICAID, SELFPAY ==
--- NOTE | ~2025-04-16 | US_ITS ---
CLINICAL HISTORY: N20.0 - Calculus of kidney US of kidneys Comparison: US/SR - US KIDNEY BILATERAL - 03/05/24 09:52 EST Findings: Right kidney is normal in size, echogenicity and morphology, 11.4 cm in length. 2 mm calculus in the midpole, no focal lesion or hydronephrosis. Left kidney is normal in size, echogenicity and morphology, 11.6 cm in length. Two 3 mm calculi in the upper pole, no focal lesion or hydronephrosis. Limited color Doppler demonstrates unremarkable bilateral blood flow. Impression: 1. Nonobstructing bilateral nephrolithiasis. This document has been electronically signed by: Maggie Hodge MD on 04/16/2025 12:06:28
--- OUTSIDE RECORDS SUMMARY | 2025-04-16 07:56 | XMS_ITS | Encounter Summary ---
Author Organization [employer] Address [address] [place] [address] Care Team Providers Care Photo Lab Specialist Name Role Phone Joy Varela Primary Care Provider [phone] Jemima Bates MD Primary Care Pro vider Encounter Details Date Type Department Care Team (Latest Contact Info) Description 02/12/2019 Abstract [facility] CONVERSIONS Dental, Provider, DDS Social History [...] on filedocumented in this encounter Care Teams Photo Lab Specialist Relationship Specialty Start Date End Date Joy Varela FNP [address] [place] [address] PCP - General Family Medicine 12/23/21 09/30/22 Jemima Bates MD [address] [place] [address] PCP - General Internal Medicine 10/01/22 documented as of this encounter
--- OUTSIDE RECORDS SUMMARY | 2025-04-16 07:56 | XMS_ITS | Patient Health Record ---
Author Organization [employer] Address [address] [place] [address] Care Team Providers Care Avian Keeper Name Role Phone MESFINIVANA Primary Care Provider [phone] Allergies No Known Allergies Reason For Referral No Information Social History Tobacco Use: Social History Observation Description Date Details (start date - stop date) Never Smoker NA - NA Social History Tobacco Use: Social Info Question Answer Notes Smoking Are you a: never smoker Additional Details Category Social Info Options Details General alcohol use: yes occasionally drug use: no Coffee/Tea/Soda: yes Marital Status single smokers in household no Problems Problem Type SNOMED Code ICD Code Onset Dates Problem Status W/U Status Risk Notes Problem Kidney stone (17375717) Kidney stones (N20.0) Active confirmed Problem Polyarthritis (268488531) Polyarthritis (M13.0) Active confirmed Problem Gastroesophageal reflux disease (disorder) (439215422) Chronic GERD (K21.9) Active confirmed Problem Degeneration of lumbar intervertebral disc (86752459) Degenerative lumbar disc (M51.36) Active confirmed Plan Of Treatment No Information Insurance Providers Payer Name Payer Address Payer Phone Subscriber Number Group Number Insured Name Patient Relationship to Insured Coverage Start Date Coverage End Date SELF-PA Y LESLYE PFEIFFER Self - patient is the insured 2024 Medical (General) History Medical History History ICD Code asthma, childhood Kidney stones GERD Lumbar DDD Surgical History Surgery Date(Month/Year) hydrocoele excsion 2020
--- OUTSIDE RECORDS SUMMARY | 2025-04-16 07:56 | XMS_ITS | Encounter Summary ---
Author Organization [facility] Address [address] [place] [address] Care Team Providers Care High Frequency Mill Operator Name Role Phone Joy Varela Primary Care Provider [phone] Jemima Bates MD Primary Care Pro vider Encounter Details Date Type Department Care Team (Latest Contact Info) Description 08/08/2020 Abstract [facility] CONVERSIONS Dental, Provider, DDS Social History Tobacco [...] filedocumented in this encounter Care Teams High Frequency Mill Operator Relationship Specialty Start Date End Date Joy Varela FNP [address] [place] [address] PCP - General Family Medicine 12/23/21 09/30/22 Jemima Bates MD [address] [place] [address] PCP - General Internal Medicine 10/01/22 documented as of this encounter
--- OUTSIDE RECORDS SUMMARY | 2025-04-16 07:56 | XMS_ITS | Clinical Summary ---
Author Organization [employer] Address [address] [place] [address] [address] [place] [address] Care Team Providers Care Process Technician Name Role Phone Jemima Bates MD Primary [...] 5 Active Diclofenac Sodium 1 % gel APPLY 1 APPLICATION TOPICALLY IF NEEDED EACH DAY (BACK PAIN). 100 g 1 5 Active minocycline 100 MG capsuleIndicati ons:Folliculiti s TAKE 1 CAPSULE BY MOUTH TWICE A DAY 60 capsule 1 5 Active azelaic acid (Finacea) 15 % gelIndications: Acne vulgaris Apply 1 Application. topically 2 times daily. 60 g 11 5 02/09/20 26 Active benzoyl peroxide (BP Wash) 10 % external washIndications :Acne vulgaris Apply topically 2 times daily. to affected area 227 g 1 5 Active Active Problems Problem Noted Date [...] acne in back -reports was following w can reconditioner but lost care-request to f back -referred already Assessment & Plan (11/17/2022 6:12 PM EDT): Pt w hx of severe acne w scarring in face and back -still w active acne in back -reports was following w can reconditioner but lost care-referred back Health care maintenance [...] Encounters Date Type Department Care Team Description 03/19/2025 Telephone [facility] [address] [place] [address] Jemima Bates MD Prior Authorization (Azelaic acid) 02/20/2025 Telephone [facility] [address] [place] [address] Jemima Bates MD sofia recall 02/08/2025 10:45 AM EDT Office Visit [facility] [address] [place] [id number] Bhaskar Ortiz MD Acne vulgaris (Primary Dx) 02/08/2025 Travel 01/19/2025 Refill [facility] [address] [place] [address] Bhaskar Ortiz MD Folliculitis from Last 3 Months Immunizations Immunization Administration Dates Next Due Moderna Covid-19 Vaccine [...] Sign Reading Time Taken Comments Blood Pressure 126/80 02/08/2025 10:41 AM EDT Pulse 87 02/08/2025 10:41 AM EDT Temperature 36.3 C (97.3 F) 02/08/2025 10:41 AM EDT Respiratory Rate 16 02/08/2025 10:4 1 AM EDT Oxygen Saturation 98% 02/08/2025 10: 41 AM EDT Inhaled Oxygen Concentration - - Weight 90.6 kg (199 lb 12.8 oz) 025 10:41 AM EDT Height 182.9 cm (6') 02/08/2025 10:41 AM EDT Body Mass Index 27.1 02/08/2025 10:41 AM EDT Plan of Treatment Health Maintenance Due Date Last Done Comments Family Planning (PISQ) 2005 HPV Vaccines (1 - Male 3-dose series) 2005 Hepatitis B Vaccines (1 of 3 - 19+ 3-dose series) 2009 Dental Oral Exam 06/03/2022 11/30/2021, 12/2020, 12/29/2018, Additional history exists Dental Prophylaxis 06/03/2022 11/30/2021, 1 , 05/28/2017 COVID-19 Vaccine ( season) 2024 02/20/2021, 01/19/2021 Influenza Vaccine (#1) 2024 Depression Screening 04/05/2025 04/05/2024, 02/09/20 Dental X-Ray: Bitewings 05/25/2025 05/24/19 25, 11/30/2021, 08/08/2020, Additional history exists SDOH Screening 08/23/2025 08/23/2024 Alcohol/Substance Use Screening 09/06/2025 09/06/2024 Disability Screening 09/06/2025 09/06/2024 Tobacco Screening 02/08/2026 02/08/2025 Dental X-Ray: Full Mouth 06/15/2027 025, 08/08/2020, 05/28/2017 DTaP/Tdap/Td Vaccines (2 - Td or Tdap) [...] Years) and At-Risk Patients (6 to 49) Years Aged Out No longer eligible based on patient's age to complete this topic RSV under 20 months Aged Out No longe r eligible based on patient's age to complete this topic Rotavirus Vaccines Aged Out No longer eligible based on patient's age to complete this topic Procedures Procedure Name Priority Date/Time Associated Diagnosis Comments BITEWING - SINGLE RADIOGRAPHIC IMAGE Routine 05/24/2024 [...] Recently Relevant to Health Maintenance Results * Hepatitis C Antibody with Reflex to HCV, RNA, Quantitative, Real-Time PCR (04/05/2024 11:00 AM EST) Hepatitis C Antibody Nonreactive Nonreactive [facility] Comment:Antibodies to HCV no t detected; does not exclude early acuteHCV infection. Blood Venous blood specimen / Unknown 04/05/2024 11:00 AM EST 04/05/2024 12:46 PM EST Jemima Nunes MD LAB BLOOD ORDERAB LES Final Result Performing Organization Address City/State/[facility] Co de Phone Number [facility] [address] [place] [address] [phone] * HIV-1/2 Antigen and Antibodies, Fourth Generation, with Reflexes (04/05/2024 11:00 AM EST) HIV AB/AG Nonreactive Nonreactive [facility] Comment:HIV-1 p24 Ag and/or HIV-1/HIV-2 Ab not detected.A test result that is nonreactive does not exclude thepossibility of exposure to or infection with HIV-1 and/orHIV-2. Nonreactive results in this assay for individualswith prior exposure to HIV-1 and/or HIV-2 may be due toantigen and antibody levels that are below the limit ofdetection of this assay.The [employer] HIV Ag/Ab Combo assay result andsupplemental assay results should be interpreted inconjunction with the patient's clinical presentation,history and other laboratory results. If the results areinconsistent with clinical evidence, additional testing issuggested to confirm the result. Blood Venous blood specimen / Unknown 04/05/2024 11:00 AM EST 04/05/2024 12:46 PM EST us Jemima Nunes MD LAB BLOOD ORDERAB LES Final Result Performing Organization Address [facility] Co de Phone Number [facility] [address] [place] [address] [phone] from Last 3 Months or Most Recently Relevant to Health Maintenance Insurance [id number] [employer] [place] AD[place] Care Teams Process Technician Relationship Specialty Start Date End Date Jemima Bates MD [address] [place] [id number] PCP - General Internal Medicine 10/01/22
--- OUTSIDE RECORDS SUMMARY | 2025-04-16 07:56 | XMS_ITS | Clinical Summary ---
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 Name Role Phone Unavailable Primary Care Provider [...] of 3 - 19+ 3-dose series) 2009 HPV Vaccines (1 - 3-dose SCD M series) 2017 HIV Screening 03/30/2022 Hepatitis C Screening 03/30/2022 Social Influencers of Health Screening 03/30/2022 Depression Screening 05/02/2024 COVID-19 Vaccine (1 - 2024-2 6 season) 2024 Influenza Vaccine (#1) 2024 RSV Immunization Adult Patie nts (1 - 1-dose 75+ series) 2065 HIB Vaccines Aged Out No longer eligi [...] 5 Years) and At-Risk Patients (6 to 49 Years) Aged Out No longer eligible b ased on patient's age to complete this topic RSV Immunization Patients Un hema 20 months Aged Out No longer eligible b ased on patient's age to complete this topic Varicella Vaccines Aged Out No longer eligible based on patient's age to complete this topic
--- OUTSIDE RECORDS SUMMARY | 2025-04-16 07:56 | XMS_ITS | Encounter Summary ---
Author Organization [employer] Address [address] [place] [id number] Care Team Providers Care Director Of Religious Activities Name Role Phone Joy Varela Primary Care Provider [phone] Jemima Bates MD Primary Care Pro vider Encounter Details Date Type Department Care Team (Latest Contact Info) Description 11/30/2021 Abstract [facility] CONVERSIONS Dental, Provider, DDS Social [...] filedocumented in this encounter Care Teams Director Of Religious Activities Relationship Specialty Start Date End Date Joy Varela FNP [address] [place] [address] PCP - General Family Medicine 12/23/21 09/30/22 Jemmia Bates MD [address] [place] [address] PCP - General Internal Medicine 10/01/22 documented as of this encounter
== END 2025-04-16 07:49 | disposition home or self-care (01) ==
LOC: HO.US 07:48
PROVIDERS: Visit Provider Urology
DX: N20.0 Calculus of kidney (principal)
CPT/HCPCS: 76775

== ENCOUNTER → 2025-04-16 07:50 | Outpatient (BNV) | payer MEDICAID, SELFPAY | PROVIDERS: Visit Provider Radiology Diagnostic Radiology | DX: N20.0 Calculus of kidney (principal) | CPT/HCPCS: 76775 ==